=== PATIENT | male | born 1975 | race Caucasian/White ===

== ENCOUNTER 2021-06-05 11:11 | Emergency (ER) | payer MEDICAID, OTHER, SELFPAY ==
[2021-06-05 11:12] VITALS: BP 147/95; PULSE 75; RESP 18; TEMP 36.6; O2SAT 98; BMI 29.9
[2021-06-05 13:26] LABS: COVID-19 Test Positive (Negative); IDNOW Serial# 9DD0AD1C
--- NOTE | 2021-06-05 14:45 | ED_ITS ---
HPI - URI/Sore Throat General Chief Complaint: Fever Stated Complaint: body aches fever Time Seen by Provider: 06/05/21 14:43 Source: patient Mode of arrival: ambulatory Limitations: no limitations History of Present Illness HPI Narrative: 46-year-old male with no known medical history presents to the emergency department with complaints of fever, cough times since May 17. Patient tells me that these symptoms have not been worsening, they have been about the same since May 17. He tells me he is currently residing in a custodial, and there was a lot of people around him more sick. He has received 2 doses of the Moderna vaccine. He is also interested in receiving his booster shot. He denies chest pain, shortness of breath, nausea, vomiting, abdominal pain, headache, dizziness, weakness. MD elicited complaint: fever and cough Onset (ago): week(s) (2.5) Severity: mild Able to tolerate fluids by mouth: Yes Exacerbating factors: nothing Relieving factors: nothing Context: sick contacts (Lives in a custodial, multiple sick contacts) Associated symptoms: fever and cough Treatments prior to arrival: none Related Data Previous Rx's Medication Instructions Recorded benzonatate 100 mg capsule 100 mg PO BID PRN #30 cap 06/05/21 Allergies Allergy/AdvReac Type Severity Reaction Status Date / Time Unable to Assess Allergy Unverified 06/05/21 15:10 Review of Systems Review of Systems: Constitutional : + Fever, + Chills, + fatigue, + Malaise ENT/Mouth : + sore throat, No runny nose Eyes: No Discharge Cardiovascular : No Chest Pain, No SOB Respiratory : + Cough, No Sputum Gastrointestinal : No Nausea, No Vomiting, No Diarrhea Genitourinary : No Dysuria, No Urinary Frequency Musculoskeletal : positive Myalgia Skin : No rash Neuro : No Headache Yes all other systems are reviewed and are negative [facility] Past Medical History Attestation statement: The following information was validated with the patient. Source: old records reviewed and nursing notes reviewed Social History Social History Advance Directives: No Advance Directives Information Provided: No Physical Exam Vital Signs: Vital Signs: Last Vital Signs Temp 98 F 06/05/21 11:12 Pulse 75 06/05/21 11:12 Resp 18 06/05/21 11:12 BP 147/95 H 06/05/21 11:12 Pulse Ox 98 06/05/21 11:12 BMI result Body Mass Index 29.9 VSS patient is noted to be slightly hypertensive however. Appearance: Alert.? Oriented X3.? No acute distress.? Breathing is unlabored, no use of accessory muscles. Head: Normocephalic, atraumatic, no step-offs or deformities Eyes: Pupils equal, round and reactive to light.? ENT: Pharynx normal.? Neck: Normal inspection.? Neck supple.? CVS: Normal heart rate and rhythm.? Pulses normal.? Respiratory: No respiratory distress.? Breath sounds normal.? Abdomen: Soft and nontender.? Skin: Skin warm and dry.? Normal skin color.? Normal skin turgor.? Extremities: No lower extremity edema.? No calf ttp. 5/5 strength to bilateral upper and lower extremities Back: No midline tenderness, no C-spine tenderness, full range of motion, no CVA tenderness bilaterally Neuro: Oriented X 3.? No motor deficit.? No sensory deficit. Course Reevaluation(s) Reevaluation #1: Patient is noted to be COVID positive. Vital signs are stable however. I have given patient strict return precautions. I have educated on diagnosis and treatment plan. I have given them red flag symptoms and have told him to return with new or worsening symptoms. I have outlined these on their discharge. Unlikely that this is ACS, patient denies chest pain. Lungs are clear unlikely pneumonia. Patient's vital signs stable, patient is not tachycardic, tachypneic or hypoxic, no calf tenderness to palpation, unlikely PE. Time: 14:48 MDM - URI/Sore Throat [facility] Narrative Medical decision making narrative: 1445 46 yo m no pmhx presents w/ covid like sx x 2.5 weeks. Vaccinated w/ moderna. Lives in custodial multiple sick contacts. Physical examination benign. VSS Plan at this time is to obtain COVID test. Medical Records Attestation: I reviewed the patient's medical records. Lab Data Attestation: I reviewed the patient's lab results. Labs: Lab Results 06/05/21 Range/Units 12:49 COVID-19 (ISAIAS) Positive A (Negative) COVID-19 Clin Com See Note Critical Care Time Critical Care Time Critical Care Time: No Discharge Plan Discharge Clinical Impression: COVID-19 Patient Disposition: Home, Self-Care Instructions: COVID-19 (Coronavirus Disease 2019) (ED) Additional Instructions: Take your medications as prescribed. If you were prescribed antibiotics today, it is important that you take your medication to their entirety, do not skip any doses, do not finish them early. Today you tested positive for COVID-19. Take Ibuprofen or Tylenol as needed for fevers or body aches. Quarantine for 7 days and ensure you wear a mask. After 7 days you should wear a mask for 3 days after that. Practice social distancing and good hand hygiene. Drink plenty of fluids. Follow-up with your primary care provider this week. Return to the emergency department with new or worsening symptoms. In case of emergency call 911 You can purchase a pulse oximeter from your local pharmacy or grocery store, and monitor your oxygen saturation if it goes below 94% you should return to the emergency department for further evaluation. [place] kaylen medicamentos seg?n lo prescrito. Si le recetaron antibi?ticchris griggs, es importante que tome silva medicamento en silva totalidad, no se salte ninguna dosis, no los termine antes de tiempo. Hoy diste positivo por COVID-19. [place] ibuprofeno o Tylenol seg?n sea necesario para la fiebre o los ramona corporales. Cuarent[place] antoni 7 d?as y aseg?rese de usar eve m?scara. Despu?s de 7 d?as, debe usar eve m?scara antoni 3 d?as despu?s de eso. Practique el distanciamiento social y eve buena higiene de gideon. Beber mucho l?quido. Seguimiento con silva proveedor de atenci?n primaria esta semana. Regrese al departamento de emergencias con s?ntomas nuevos o que empeoran. En michael de emergencia llama al 911 Puede comprar un ox?metro de pulso en silva farmacia o kit de comestibles local, y controlar silva saturaci?n de ox?abida si por debajo del 94%, debe regresar al departamento de emergencias para eve evaluaci?n adicional. If You Test Positive for COVID-19 (Isolate) Everyone, regardless of vaccination status. * Stay home for 5 days. * If you have no symptoms or your symptoms are resolving after 5 days, you can leave your house. * Continue to wear a mask around others for 5 additional days. If you have a fever, continue to stay home until your fever resolves. If You Were Exposed to Someone with COVID-19 (Quarantine) If you: Have been boosted OR Completed the primary series of Pfizer or Moderna vaccine within the last 6 months OR Completed the primary series of J&J vaccine within the last 2 months * Wear a mask around others for 10 days. * Test on day 5, if possible. If you develop symptoms get a test and stay home. If you: Completed the primary series of Pfizer or Moderna vaccine over 6?months ago and are not boosted OR Completed the primary series of J&J over 2 months ago and are not boosted OR Are unvaccinated * Stay home for 5 days. After that continue to wear a mask around others for 5 additional days. * If you can?t quarantine you must wear a mask for 10 days. * Test on day 5 if possible. If you develop symptoms get a test and stay home Prescriptions: New benzonatate 100 mg capsule 100 mg PO BID PRN (Reason: cough) Qty: 30 RF: 0 Referrals: Physician,None [Primary Care Provider] - 2 days Stand Alone Forms: Work/School Release Print Language: [place]uran
== END 2021-06-05 16:03 | disposition home or self-care (01) ==
LOC: HO.ED 15:26
PROVIDERS: Emergency Provider Emergency Medicine
DX: U07.1 COVID-19 (principal)
CPT/HCPCS: 87635; 99283